=== PATIENT | female | born 1995 | race Two or more races ===

== ENCOUNTER 2019-06-08 21:44 | Observation (INO) | payer MEDICAID ==
[~2019-06-08] VITALS: Ht 154.9 cm; Wt 71.2 kg
[2019-06-08] MEDS ORDERED: PREN-134 PO (22:17)
[2019-06-08 22:21] VITALS: BP 116/75
== END 2019-06-09 00:15 | disposition home or self-care (01) ==
LOC: 4S 21:44
PROVIDERS: ADMIT Obstetrics & Gynecology; ATTEND Obstetrics & Gynecology
DX: O62.9 Abnormality of forces of labor, unspecified (principal); Z3A.38 38 weeks gestation of pregnancy
CPT/HCPCS: 80307 ×8; 81001; G0378

== ENCOUNTER 2019-06-15 18:45 | Inpatient (IN) | payer MEDICAID ==
[~2019-06-15] VITALS: Ht 129.5 cm; Wt 71.7 kg
[~2019-06-15 18:45] MED LIST: PREN-134 PO
[2019-06-15] MEDS ORDERED: OXYTOCIN 20 UNITS/LACT RINGERS 1,000 ML IV ONE (19:58)
[2019-06-15] MEDS ORDERED: TERBUTALINE SULFATE 1 MG/ML VIAL SQ PRN (20:00)
[2019-06-15] MEDS ORDERED: CITRIC ACID/SODIUM CITRATE 30 ML SOLUTION UDCUP PO PRN (20:00)
[2019-06-15] MEDS ORDERED: METOCLOPRAMIDE HCL 5 MG/ML 2 ML VIAL IVP PRN (20:00)
[2019-06-15] MEDS ORDERED: LIDOCAINE/PF 1% 30 ML VIAL INJ PRN (20:00)
[2019-06-15] MEDS ORDERED: AMPICILLIN SODIUM 2 GM/NS 100 ML IV ONE (20:15)
[2019-06-15] MEDS: RINGERS SOLUTION,LACTATED 1,000 ML IV SCH ×2 (20:22→23:23)
[2019-06-15 20:43] VITALS: BP 133/77
[2019-06-15] MEDS ORDERED: ROPIVACAINE HCL/PF 0.2% 100 ML ED ONE (20:50)
[2019-06-15 20:55] LABS: BASOPHILS % (AUTO) 0.4 % (0.0-2.0); EOSINOPHILS % (AUTO) 0.4 % (1.0-6.0); HEMATOCRIT 28.8 % (36-46); HEMOGLOBIN 9.8 g/dL (12.0-16.0); LYMPHOCYTES # (AUTO) 2.2 K/uL (1.0-4.8); LYMPHOCYTES % (AUTO) 19.5 % (22.0-44.0); MEAN CORPUSCULAR HGB CONC 34.1 G/dL (31.0-37.0); MEAN CORPUSCULAR VOLUME 88 fL (80-100); MONOCYTES # (AUTO) 0.6 K/uL (0.1-1.0); MONOCYTES % (AUTO) 5.5 % (2.0-9.0); NEUTROPHILS # (AUTO) 8.2 K/uL (1.8-7.7); NEUTROPHILS % (AUTO) 74.2 % (40.0-70.0); PLATELET COUNT (AUTO)-OB 217 K/uL (150-450); RED BLOOD CELL COUNT(AUTO) 3.27 MIL/uL (4.00-5.20); RED CELL DISTRIBUTION WIDTH 13.5 % (11.5-14.5)
[2019-06-15] MEDS ORDERED: ROPIVACAINE HCL/PF 0.2% 100 ML ED PRN (21:11)
[2019-06-15] MEDS ORDERED: ONDANSETRON HCL 4 MG/2 ML VIAL IVP PRN (21:15)
[2019-06-15] MEDS ORDERED: DiphenhydrAMINE HCL 50 MG/ML VIAL IVP PRN (21:15)
[2019-06-15] MEDS ORDERED: NALBUPHINE HCL 10 MG/ML VIAL IVP PRN (21:15)
[2019-06-16] MEDS ORDERED: AMPICILLIN SODIUM 1 GM/NS 50 ML IV SCH (01:00)
[2019-06-16] MEDS ORDERED: OXYTOCIN 30 UNITS/LACT RINGERS 500 ML IV ONE (02:28)
[2019-06-16] MEDS ORDERED: RINGERS SOLUTION,LACTATED 1,000 ML IV ONE (03:10)
[2019-06-16] MEDS ORDERED: BENZOCAINE 20%/MENTHOL 56 GM SPRAY CANISTER TP PRN (03:15)
[2019-06-16] MEDS ORDERED: LANOLIN 7 GM OINTMENT TP PRN (03:15)
[2019-06-16] MEDS ORDERED: MEASLES/MUMPS/RUBELLA VACCINE, LIVE 0.5 ML/VIAL SQ ONE (03:15)
[2019-06-16] MEDS ORDERED: OxyCODONE HCL/ACETAMINOPHEN 5-325 MG TABLET PO PRN ×2 (03:15)
[2019-06-16] MEDS ORDERED: GLYCERIN/WITCH HAZEL LEAF 40 PADS JAR TP PRN (03:15)
[2019-06-16] MEDS: IBUPROFEN 600 MG TABLET PO PRN ×2 (06:23→13:46)
[2019-06-16] MEDS: MAGNESIUM HYDROXIDE SUSPENSION 30 ML UDCUP PO SCH ×2 (09:20→21:00)
[2019-06-17] MEDS: IBUPROFEN 600 MG TABLET PO PRN (01:22)
[2019-06-17] MEDS ORDERED: IBUP-2071 PO (09:07)
[2019-06-17] MEDS ORDERED: DOCU-275 PO (09:08)
[2019-06-17] MEDS ORDERED: FERR-89 PO (09:08)
== END 2019-06-17 14:05 | disposition home or self-care (01) | DRG 807 ==
LOC: OBSVTOIN 18:45 → 4S 18:45
PROVIDERS: ADMIT Obstetrics & Gynecology; ATTEND Obstetrics & Gynecology
PROC: 10E0XZZ Delivery of Products of Conception, External Approach (ICD-10-PCS; principal; 2019-06-16)
PROC: 3E0R3BZ Introduction of Anesthetic Agent into Spinal Canal, Percutaneous Approach (ICD-10-PCS; 2019-06-16)
PROC: 00HU33Z Insertion of Infusion Device into Spinal Canal, Percutaneous Approach (ICD-10-PCS; 2019-06-16)
PROC: 3E0234Z Introduction of Serum, Toxoid and Vaccine into Muscle, Percutaneous Approach (ICD-10-PCS; 2019-06-16)
DX: O42.92 Full-term premature rupture of membranes, unspecified as to length of time between rupture and onset of labor (principal); Z37.0 Single live birth; O69.81X0 Labor and delivery complicated by cord around neck, without compression, not applicable or unspecified; Z3A.39 39 weeks gestation of pregnancy; Z23 Encounter for immunization
CPT/HCPCS: 80307; 86592; 86762; 86850; 86900; 86901; 87340; 90707; J0290; J2590; J2795; J7120